=== PATIENT | male | born 1945 | race Caucasian/White ===

== ENCOUNTER 2021-07-13 08:01 | Inpatient (IN) ==
[2021-07-13] MEDS ORDERED: SODIUM CHLORIDE 0.9% 1,000 ML IV STA ×2 (08:42→10:42)
[2021-07-13] MEDS ORDERED: ONDANSETRON ODT 4 MG TABLET PO STA (08:42)
[2021-07-13] MEDS ORDERED: FUROSEMIDE 100 MG/10 ML VIAL IV STA (08:42)
[2021-07-13] MEDS ORDERED: HYDROmorphone 2 MG/1 ML VIAL IV STA (08:45)
[2021-07-13 09:09] LABS: ABG Base Excess -6.6 MMOL/L (-2.5-2.5); ABG HCO3 19.1 MMOL/L (20-26); ABG Oxygen Saturation 97.4 % (95-100); ABG PCO2 35.6 MM HG (35-48); ABG PH 7.328 (7.35-7.45); ABG PO2 97.2 MM HG (80-95); ABG TCO2 16.2 MMOL/L (23-27)
[2021-07-13 09:21] LABS: Basophils % 0.2 % (0.0-0.8); Hematocrit 45.5 VOL% (42.0-52.0); Hemoglobin 14.5 GM/DL (14.0-18.0); Immature Granulocytes Absolute 0.24 #; Lymphocytes # 0.6 10*3/uL (1.4-4.0); Lymphocytes % 2.3 % (21.2-54.2); Mean Corpuscular HGB Conc 31.9 GM/DL (32-36); Mean Corpuscular Volume 91.7 FL (87-102); Monocytes % 11.5 % (1.7-12.7); Platelet Count 317 T/CUMM (130-400); Red Blood Count 4.96 MC/CUMM (3.8-5.5); Red Cell Distribution Width 15.6 % (9.3-17.3)
[2021-07-13] MEDS ORDERED: PIPERACILLIN/TAZOBACTAM 3,375 MG in SODIUM CHLORIDE 0.9% 100 ML IV STA (09:38)
[2021-07-13 09:43] LABS: INR 1.5; PT Patient Result 16.1 SECS (10.5-12.0); Partial Thromboplastin Time 38.5 SECS (23.8-32.1)
[2021-07-13 09:47] LABS: Band Neutrophils 2 % (0-10); Lymphocytes 3 % (20-55); Microcytosis 1+; Ovalocytes Slight; Segmented Neutrophils 90 % (50-85); Total Cells Counted 100
[2021-07-13 09:48] LABS: Albumin 2.4 G/DL (3.4-5.0); Bilirubin,Total 1.3 MG/DL (0.20-1.00); Calcium 9.5 MG/DL (8.5-10.1); Osmolality,Calculated 293.1 MOS/KG (273-304); Potassium 4.5 MMOL/L (3.5-5.1); Total Protein 6.6 G/DL (6.4-8.2)
[2021-07-13 10:01] LABS: Amorphous Crystals,Urine Occasional /HPF (Few); Bacteria,Urine Occasional /HPF (Few); Bilirubin,Urine Negative (Negative); Blood, Urine Small mg/dL (Negative); Glucose,Urine (UA) Negative (Negative); Hyaline Casts,Urine 8 /LPF (0-3); Ketones,Urine Negative (Negative); Mucus,Urine Occasional /LPF (Occasional); Nitrite,Urine Negative (Negative); Protein,Urine Negative; RBC,Urine 8 /HPF (0-4); Squamous Epithelial Cell,Urine Occasional /HPF (0-10); Urine Appearance CLOUDY (Clear); Urine Color Amber (Yellow); Urine Specific Gravity 1.026 (1.001-1.035)
[2021-07-13] MEDS ORDERED: SODIUM CHLORIDE 0.9% 3,750 ML IV ONE (11:19)
[2021-07-13 11:50] LABS: Ferritin 537.7 ng/mL (26-388)
[2021-07-13] MEDS ORDERED: ALBUTEROL 2.5 MG/3 ML NEB RESP TX PRN (12:31)
[2021-07-13] MEDS ORDERED: MORPHINE 2 MG/1 ML SYRINGE IV PRN (12:32)
[2021-07-13] MEDS ORDERED: AZITHROMYCIN INJ 500 MG in SODIUM CHLORIDE 0.9% 250 ML IV ONE (12:32)
[2021-07-13] MEDS ORDERED: SIMETHICONE CHEW 125 MG TABLET PO PRN (12:32)
[2021-07-13] MEDS ORDERED: ACETAMINOPHEN 325 MG TABLET PO PRN (12:32)
[2021-07-13] MEDS ORDERED: BISACODYL 5 MG TABLET PO PRN (12:32)
[2021-07-13] MEDS ORDERED: cefTRIAXone 1,000 MG VIAL IM SCH (13:00)
[2021-07-13] MEDS: HEPARIN 5,000 UNIT/1 ML VIAL SUBCUT SCH (13:15)
[2021-07-13] MEDS: SODIUM CHLORIDE 0.9% 1,000 ML IV SCH (15:25)
[2021-07-13] MEDS: cefTRIAXone 2,000 MG in SODIUM CHLORIDE 0.9% 100 ML IV SCH (15:25)
[2021-07-13] MEDS: ALBUMIN 25% 25 GM/100 ML VIAL IV SCH ×2 (16:00→21:30)
[2021-07-13] MEDS: ASCORBIC ACID 500 MG TABLET PO SCH (21:28)
[2021-07-14] MEDS: SODIUM CHLORIDE 0.9% 1,000 ML IV SCH ×2 (00:25→08:41)
[2021-07-14 01:43] LABS: Basophils % 0.1 % (0.0-0.8); Hematocrit 29.4 VOL% (42.0-52.0); Immature Granulocytes % 0.7 %; Immature Granulocytes Absolute 0.11 #; Lymphocytes # 0.4 10*3/uL (1.4-4.0); Lymphocytes % 2.9 % (21.2-54.2); Mean Corpuscular HGB Conc 30.6 GM/DL (32-36); Mean Corpuscular Volume 96.4 FL (87-102); Mean Platelet Volume 10.1 FL (9.6-12.0); Monocytes % 11.8 % (1.7-12.7); Neutrophils % 84.5 % (38.7-73.9); Red Blood Count 3.05 MC/CUMM (3.8-5.5); White Blood Count 15.2 T/CUMM (4-12)
[2021-07-14 01:44] LABS: Platelet Count 176 T/CUMM (130-400)
[2021-07-14 01:50] LABS: INR 1.8; PT Patient Result 19.7 SECS (10.5-12.0)
[2021-07-14] MEDS: HEPARIN 5,000 UNIT/1 ML VIAL SUBCUT SCH ×2 (01:53→12:29)
[2021-07-14 02:19] LABS: Band Neutrophils 1 % (0-10); Lymphocytes 1 % (20-55); Segmented Neutrophils 93 % (50-85); Total Cells Counted 100
[2021-07-14 02:20] LABS: Anisocytosis 1+; Burr Cells Slight; Microcytosis 1+; Ovalocytes Slight
[2021-07-14 02:21] LABS: Platelet Estimate Adequate
[2021-07-14 02:57] LABS: Alanine Aminotransferase 12 U/L (16-61); Albumin 1.3 G/DL (3.4-5.0); Alkaline Phosphatase 54 U/L (45-117); Aspartate Amino Transferase 10 U/L (0-37); Blood Urea Nitrogen 64 MG/DL (7-18); Carbon Dioxide 13 MMOL/L (21-32); Estimated Glom Filtration Rate 22 ML/MIN; Ferritin 308.3 ng/mL (26-388); Glucose 68 MG/DL (74-106); Osmolality,Calculated 305.6 MOS/KG (273-304); Potassium 2.9 MMOL/L (3.5-5.1); Sodium 146 MMOL/L (136-145); Total Protein 3.4 G/DL (6.4-8.2)
[2021-07-14 03:07] LABS: Calcium < 5.0 MG/DL (8.5-10.1)
[2021-07-14 04:50] LABS: Basophils % 0.2 % (0.0-0.8); Hematocrit 35.7 VOL% (42.0-52.0); Immature Granulocytes % 0.8 %; Immature Granulocytes Absolute 0.14 #; Lymphocytes # 0.5 10*3/uL (1.4-4.0); Lymphocytes % 2.9 % (21.2-54.2); Mean Corpuscular HGB Conc 31.1 GM/DL (32-36); Mean Corpuscular Volume 95.2 FL (87-102); Monocytes % 12.2 % (1.7-12.7); Neutrophils % 83.9 % (38.7-73.9); Red Cell Distribution Width 16.1 % (9.3-17.3); White Blood Count 17.7 T/CUMM (4-12)
[2021-07-14 05:17] LABS: Hemoglobin 11.1 GM/DL (14.0-18.0); Red Blood Count 3.75 MC/CUMM (3.8-5.5)
[2021-07-14 05:18] LABS: Platelet Count 219 T/CUMM (130-400)
[2021-07-14 05:21] LABS: Bilirubin,Total 0.6 MG/DL (0.20-1.00); Calcium 6.9 MG/DL (8.5-10.1); Potassium 3.9 MMOL/L (3.5-5.1); Total Protein 4.7 G/DL (6.4-8.2)
[2021-07-14 05:41] LABS: Lymphocytes 2 % (20-55); Microcytosis 1+; Ovalocytes Few; Polychromasia Slight; Segmented Neutrophils 91 % (50-85); Total Cells Counted 100
[2021-07-14 05:42] LABS: Burr Cells Few; Platelet Estimate Normal
[2021-07-14] MEDS: ALBUMIN 25% 25 GM/100 ML VIAL IV SCH (05:48)
[2021-07-14] MEDS: CHOLECALCIFEROL 1,000 UNIT TABLET PO SCH (08:36)
[2021-07-14] MEDS: ASCORBIC ACID 500 MG TABLET PO SCH ×2 (08:36→20:31)
[2021-07-14] MEDS: FAMOTIDINE 20 MG TABLET PO SCH (08:36)
[2021-07-14] MEDS: AZITHROMYCIN 250 MG TABLET PO SCH (08:36)
[2021-07-14] MEDS: ZINC GLUCONATE 50 MG TABLET PO SCH (08:36)
[2021-07-14] MEDS: TAMSULOSIN 0.4 MG CAPSULE PO SCH (08:37)
[2021-07-14] MEDS: DEXAMETHASONE 4 MG/1 ML VIAL IV SCH (09:04)
[2021-07-14] MEDS: SODIUM BICARB INJ 150 MEQ in DEXTROSE 5% 1,000 ML IV SCH (09:40)
[2021-07-14] MEDS: ALBUMIN 25% 12.5 GM/50 ML VIAL IV SCH ×2 (12:29→20:31)
[2021-07-14] MEDS: SPIRONOLACTONE 50 MG TABLET PO SCH ×2 (12:54→20:31)
[2021-07-14 13:08] LABS: Calcium 8.1 MG/DL (8.5-10.1); Osmolality,Calculated 309.7 MOS/KG (273-304); Potassium 4.8 MMOL/L (3.5-5.1)
[2021-07-14] MEDS: cefTRIAXone 2,000 MG in SODIUM CHLORIDE 0.9% 100 ML IV SCH (14:00)
[2021-07-14 15:52] LABS: INR 1.5; PT Patient Result 15.9 SECS (10.5-12.0)
[2021-07-14 15:54] LABS: Partial Thromboplastin Time 43.6 SECS (23.8-32.1)
[2021-07-14 16:43] LABS: Hepatitis B Core IgM Quant 0.08 Index; Hepatitis B Surface Ag Quant < 0.10 Index; Hepatitis B Surface Ag Result Non-Reactive (NonReactive); Hepatitis C Virus Ab Quant 0.09 Index; Hepatitis C Virus Ab Result Non-Reactive (NonReactive)
[2021-07-15] MEDS: HEPARIN 5,000 UNIT/1 ML VIAL SUBCUT SCH ×2 (00:28→13:02)
[2021-07-15] MEDS: ALBUMIN 25% 12.5 GM/50 ML VIAL IV SCH (04:42)
[2021-07-15 04:59] LABS: Basophils % 0.1 % (0.0-0.8); Hemoglobin 12.3 GM/DL (14.0-18.0); Immature Granulocytes % 1.3 %; Immature Granulocytes Absolute 0.24 #; Lymphocytes # 0.5 10*3/uL (1.4-4.0); Lymphocytes % 2.5 % (21.2-54.2); Mean Corpuscular HGB Conc 31.5 GM/DL (32-36); Mean Corpuscular Volume 92.4 FL (87-102); Mean Platelet Volume 9.8 FL (9.6-12.0); Monocytes % 11.7 % (1.7-12.7); Neutrophils % 84.4 % (38.7-73.9); Platelet Count 204 T/CUMM (130-400); Red Blood Count 4.22 MC/CUMM (3.8-5.5); Red Cell Distribution Width 15.9 % (9.3-17.3); White Blood Count 17.9 T/CUMM (4-12)
[2021-07-15 05:18] LABS: Band Neutrophils 1 % (0-10); Hypochromasia 1+; Lymphocytes 3 % (20-55); Segmented Neutrophils 85 % (50-85); Total Cells Counted 100
[2021-07-15 05:19] LABS: Microcytosis 1+; Ovalocytes Few; Platelet Estimate Normal
[2021-07-15 05:34] LABS: Albumin 2.9 G/DL (3.4-5.0); Bilirubin,Total 0.7 MG/DL (0.20-1.00); Osmolality,Calculated 312.1 MOS/KG (273-304); Potassium 4.6 MMOL/L (3.5-5.1); Total Protein 6.2 G/DL (6.4-8.2)
[2021-07-15] MEDS: SODIUM BICARB INJ 150 MEQ in DEXTROSE 5% 1,000 ML IV SCH (06:05)
[2021-07-15] MEDS: FAMOTIDINE 20 MG TABLET PO SCH ×2 (08:25→10:18)
[2021-07-15] MEDS: ASCORBIC ACID 500 MG TABLET PO SCH ×2 (08:25→21:45)
[2021-07-15] MEDS: ZINC GLUCONATE 50 MG TABLET PO SCH (08:25)
[2021-07-15] MEDS: CHOLECALCIFEROL 1,000 UNIT TABLET PO SCH (08:25)
[2021-07-15] MEDS: DEXAMETHASONE 4 MG/1 ML VIAL IV SCH (08:33)
[2021-07-15] MEDS: TAMSULOSIN 0.4 MG CAPSULE PO SCH ×2 (08:41→10:17)
[2021-07-15] MEDS: SPIRONOLACTONE 50 MG TABLET PO SCH ×3 (08:41→21:45)
[2021-07-15 09:04] LABS: INR 1.5; PT Patient Result 16.3 SECS (10.5-12.0)
[2021-07-15 09:27] LABS: Partial Thromboplastin Time 42.6 SECS (23.8-32.1)
[2021-07-15] MEDS: AZITHROMYCIN 250 MG TABLET PO SCH (10:17)
[2021-07-15] MEDS: LACTULOSE 20 GM/30 ML UDCUP PO SCH ×2 (12:17→21:45)
[2021-07-15] MEDS ORDERED: ALBUMIN 25% 25 GM/100 ML VIAL IV ONE (14:19)
[2021-07-15] MEDS ORDERED: NOREPINEPHRINE 8 MG in SODIUM CHLORIDE 0.9% 242 ML IV PRN (15:05)
[2021-07-15] MEDS ORDERED: HEPARIN 10,000 UNIT/10 ML VIAL IV SCH (15:30)
[2021-07-15] MEDS: cefTRIAXone 2,000 MG in SODIUM CHLORIDE 0.9% 100 ML IV SCH (16:00)
[2021-07-16] MEDS: HEPARIN 5,000 UNIT/1 ML VIAL SUBCUT SCH ×2 (01:17→14:30)
[2021-07-16] MEDS: SODIUM BICARB INJ 150 MEQ in DEXTROSE 5% 1,000 ML IV SCH (04:21)
[2021-07-16 04:55] LABS: Basophils % 0.1 % (0.0-0.8); Hematocrit 35.5 VOL% (42.0-52.0); Hemoglobin 11.5 GM/DL (14.0-18.0); Immature Granulocytes % 1.5 %; Immature Granulocytes Absolute 0.16 #; Lymphocytes # 0.3 10*3/uL (1.4-4.0); Lymphocytes % 3.2 % (21.2-54.2); Mean Corpuscular HGB Conc 32.4 GM/DL (32-36); Mean Corpuscular Volume 89.9 FL (87-102); Mean Platelet Volume 9.9 FL (9.6-12.0); Neutrophils % 83.2 % (38.7-73.9); Platelet Count 131 T/CUMM (130-400); Red Blood Count 3.95 MC/CUMM (3.8-5.5); Red Cell Distribution Width 15.7 % (9.3-17.3); White Blood Count 10.8 T/CUMM (4-12)
[2021-07-16 05:07] LABS: INR 1.4; PT Patient Result 15.6 SECS (10.5-12.0)
[2021-07-16 05:15] LABS: Albumin 2.9 G/DL (3.4-5.0); Bilirubin,Total 0.8 MG/DL (0.20-1.00); Calcium 7.9 MG/DL (8.5-10.1); Osmolality,Calculated 316.2 MOS/KG (273-304); Potassium 4.3 MMOL/L (3.5-5.1); Total Protein 5.9 G/DL (6.4-8.2)
[2021-07-16 05:20] LABS: Lymphocytes 4 % (20-55); Myelocytes 1 %; Platelet Estimate Normal; Segmented Neutrophils 90 % (50-85); Total Cells Counted 100
[2021-07-16] MEDS: TAMSULOSIN 0.4 MG CAPSULE PO SCH (09:50)
[2021-07-16] MEDS: FAMOTIDINE 20 MG TABLET PO SCH (09:50)
[2021-07-16] MEDS: CHOLECALCIFEROL 1,000 UNIT TABLET PO SCH (09:50)
[2021-07-16] MEDS: ASCORBIC ACID 500 MG TABLET PO SCH ×2 (09:50→20:33)
[2021-07-16] MEDS: DEXAMETHASONE 4 MG/1 ML VIAL IV SCH (09:50)
[2021-07-16] MEDS: LACTULOSE 20 GM/30 ML UDCUP PO SCH ×2 (09:50→20:40)
[2021-07-16] MEDS: AZITHROMYCIN 250 MG TABLET PO SCH (09:50)
[2021-07-16] MEDS: SPIRONOLACTONE 50 MG TABLET PO SCH ×2 (09:50→20:33)
[2021-07-16] MEDS: ZINC GLUCONATE 50 MG TABLET PO SCH (09:50)
[2021-07-16] MEDS: cefTRIAXone 2,000 MG in SODIUM CHLORIDE 0.9% 100 ML IV SCH (16:09)
[2021-07-17] MEDS: HEPARIN 5,000 UNIT/1 ML VIAL SUBCUT SCH ×2 (02:41→13:01)
[2021-07-17 05:39] LABS: Basophils % 0.3 % (0.0-0.8); Hematocrit 35.5 VOL% (42.0-52.0); Hemoglobin 11.7 GM/DL (14.0-18.0); Immature Granulocytes % 2.4 %; Immature Granulocytes Absolute 0.19 #; Lymphocytes # 0.2 10*3/uL (1.4-4.0); Mean Corpuscular Volume 89.9 FL (87-102); Monocytes % 12.1 % (1.7-12.7); Neutrophils % 82.2 % (38.7-73.9); Platelet Count 102 T/CUMM (130-400); Red Blood Count 3.95 MC/CUMM (3.8-5.5); Red Cell Distribution Width 15.6 % (9.3-17.3); White Blood Count 7.8 T/CUMM (4-12)
[2021-07-17 06:05] LABS: Albumin 2.8 G/DL (3.4-5.0); Bilirubin,Total 0.6 MG/DL (0.20-1.00); Calcium 8.3 MG/DL (8.5-10.1); Osmolality,Calculated 306.8 MOS/KG (273-304); Potassium 4.7 MMOL/L (3.5-5.1); Total Protein 5.9 G/DL (6.4-8.2)
[2021-07-17 06:28] LABS: Hypochromasia Slight; Lymphocytes 3 % (20-55); Segmented Neutrophils 82 % (50-85); Total Cells Counted 100
[2021-07-17 06:29] LABS: Microcytosis 1+; Ovalocytes Few; Platelet Estimate Decreased; Target Cells Slight
[2021-07-17] MEDS: SPIRONOLACTONE 50 MG TABLET PO SCH ×2 (08:37→21:00)
[2021-07-17] MEDS: ZINC GLUCONATE 50 MG TABLET PO SCH (08:37)
[2021-07-17] MEDS: CHOLECALCIFEROL 1,000 UNIT TABLET PO SCH (08:37)
[2021-07-17] MEDS: ASCORBIC ACID 500 MG TABLET PO SCH ×2 (08:37→21:00)
[2021-07-17] MEDS: AZITHROMYCIN 250 MG TABLET PO SCH (08:37)
[2021-07-17] MEDS: TAMSULOSIN 0.4 MG CAPSULE PO SCH (08:37)
[2021-07-17] MEDS: FAMOTIDINE 20 MG TABLET PO SCH (08:37)
[2021-07-17] MEDS: DEXAMETHASONE 4 MG/1 ML VIAL IV SCH (08:38)
[2021-07-17] MEDS: LACTULOSE 20 GM/30 ML UDCUP PO SCH ×2 (08:38→21:00)
[2021-07-17] MEDS: cefTRIAXone 2,000 MG in SODIUM CHLORIDE 0.9% 100 ML IV SCH (13:02)
[2021-07-17] MEDS: ZINC OXIDE PASTE 113 GM TUBE TOP SCH ×2 (14:31→20:59)
[2021-07-18 08:31] LABS: Basophils % 0.2 % (0.0-0.8); Hematocrit 37.8 VOL% (42.0-52.0); Hemoglobin 12.4 GM/DL (14.0-18.0); Immature Granulocytes % 4.4 %; Immature Granulocytes Absolute 0.44 #; Lymphocytes # 0.2 10*3/uL (1.4-4.0); Lymphocytes % 2.1 % (21.2-54.2); Mean Corpuscular HGB Conc 32.8 GM/DL (32-36); Mean Corpuscular Volume 88.7 FL (87-102); Mean Platelet Volume 9.2 FL (9.6-12.0); Monocytes % 13.4 % (1.7-12.7); Neutrophils % 79.9 % (38.7-73.9); Red Blood Count 4.26 MC/CUMM (3.8-5.5); Red Cell Distribution Width 15.5 % (9.3-17.3); White Blood Count 10.1 T/CUMM (4-12)
[2021-07-18] MEDS: SPIRONOLACTONE 50 MG TABLET PO SCH ×2 (08:49→23:18)
[2021-07-18] MEDS: ZINC GLUCONATE 50 MG TABLET PO SCH (08:49)
[2021-07-18] MEDS: CHOLECALCIFEROL 1,000 UNIT TABLET PO SCH (08:49)
[2021-07-18] MEDS: FAMOTIDINE 20 MG TABLET PO SCH (08:49)
[2021-07-18] MEDS: ASCORBIC ACID 500 MG TABLET PO SCH ×2 (08:49→23:18)
[2021-07-18] MEDS: LACTULOSE 20 GM/30 ML UDCUP PO SCH ×2 (08:50→23:18)
[2021-07-18] MEDS: TAMSULOSIN 0.4 MG CAPSULE PO SCH (08:50)
[2021-07-18] MEDS: DEXAMETHASONE 4 MG/1 ML VIAL IV SCH (08:50)
[2021-07-18 08:53] LABS: Platelet Count 94 T/CUMM (130-400)
[2021-07-18 08:55] LABS: Albumin 2.8 G/DL (3.4-5.0); Bilirubin,Total 0.8 MG/DL (0.20-1.00); Calcium 8.6 MG/DL (8.5-10.1); Osmolality,Calculated 305.8 MOS/KG (273-304); Potassium 4.6 MMOL/L (3.5-5.1); Total Protein 6.1 G/DL (6.4-8.2)
[2021-07-18] MEDS: ZINC OXIDE PASTE 113 GM TUBE TOP SCH ×2 (09:00→23:18)
[2021-07-18 09:03] LABS: Lymphocytes 8 % (20-55); Platelet Estimate Decreased; Segmented Neutrophils 79 % (50-85); Total Cells Counted 100
[2021-07-19 06:15] LABS: Basophils # 0.1 10*3/uL (0.0-0.2); Basophils % 0.3 % (0.0-0.8); Hematocrit 41.9 VOL% (42.0-52.0); Hemoglobin 13.7 GM/DL (14.0-18.0); Immature Granulocytes % 5.2 %; Immature Granulocytes Absolute 0.79 #; Lymphocytes # 0.3 10*3/uL (1.4-4.0); Lymphocytes % 2.3 % (21.2-54.2); Mean Corpuscular HGB Conc 32.7 GM/DL (32-36); Mean Corpuscular Volume 89.1 FL (87-102); Mean Platelet Volume 10.4 FL (9.6-12.0); Monocytes % 12.2 % (1.7-12.7); NRBC # 0.02 10*3/uL; Platelet Count 108 T/CUMM (130-400); Red Cell Distribution Width 15.6 % (9.3-17.3); White Blood Count 15.1 T/CUMM (4-12)
[2021-07-19 06:37] LABS: Lymphocytes 2 % (20-55); Platelet Estimate Adequate; Segmented Neutrophils 86 % (50-85); Total Cells Counted 100
[2021-07-19] MEDS: DEXAMETHASONE 4 MG/1 ML VIAL IV SCH (09:08)
[2021-07-19] MEDS: ASCORBIC ACID 500 MG TABLET PO SCH ×2 (09:09→20:39)
[2021-07-19] MEDS: CHOLECALCIFEROL 1,000 UNIT TABLET PO SCH (09:10)
[2021-07-19] MEDS: ZINC GLUCONATE 50 MG TABLET PO SCH (09:10)
[2021-07-19] MEDS: SPIRONOLACTONE 50 MG TABLET PO SCH ×2 (09:10→20:40)
[2021-07-19] MEDS: FAMOTIDINE 20 MG TABLET PO SCH (09:10)
[2021-07-19] MEDS: LACTULOSE 20 GM/30 ML UDCUP PO SCH ×2 (09:10→20:40)
[2021-07-19] MEDS: TAMSULOSIN 0.4 MG CAPSULE PO SCH (09:10)
[2021-07-19] MEDS: ZINC OXIDE PASTE 113 GM TUBE TOP SCH ×2 (14:20→20:39)
[2021-07-20 06:19] LABS: Basophils # 0.1 10*3/uL (0.0-0.2); Basophils % 0.4 % (0.0-0.8); Hematocrit 41.3 VOL% (42.0-52.0); Hemoglobin 13.6 GM/DL (14.0-18.0); Immature Granulocytes % 4.8 %; Immature Granulocytes Absolute 0.68 #; Lymphocytes # 0.3 10*3/uL (1.4-4.0); Mean Corpuscular HGB Conc 32.9 GM/DL (32-36); Mean Corpuscular Volume 89.4 FL (87-102); Mean Platelet Volume 10.5 FL (9.6-12.0); Monocytes % 11.2 % (1.7-12.7); Neutrophils % 81.6 % (38.7-73.9); Platelet Count 65 T/CUMM (130-400); Red Blood Count 4.62 MC/CUMM (3.8-5.5); Red Cell Distribution Width 15.5 % (9.3-17.3); White Blood Count 14.3 T/CUMM (4-12)
[2021-07-20 06:32] LABS: Calcium 8.8 MG/DL (8.5-10.1)
[2021-07-20 06:53] LABS: Lymphocytes 7 % (20-55); Segmented Neutrophils 83 % (50-85); Total Cells Counted 100
[2021-07-20 06:54] LABS: Ovalocytes Few; Platelet Estimate Decreased; Schistocytes Slight
[2021-07-20] MEDS: SPIRONOLACTONE 50 MG TABLET PO SCH ×2 (08:03→20:11)
[2021-07-20] MEDS: ASCORBIC ACID 500 MG TABLET PO SCH ×2 (08:03→20:11)
[2021-07-20] MEDS: LACTULOSE 20 GM/30 ML UDCUP PO SCH ×2 (08:03→20:11)
[2021-07-20] MEDS: FAMOTIDINE 20 MG TABLET PO SCH (08:03)
[2021-07-20] MEDS: TAMSULOSIN 0.4 MG CAPSULE PO SCH (08:03)
[2021-07-20] MEDS: DEXAMETHASONE 4 MG/1 ML VIAL IV SCH (08:03)
[2021-07-20] MEDS: ZINC OXIDE PASTE 113 GM TUBE TOP SCH ×2 (08:03→20:11)
[2021-07-20] MEDS: CHOLECALCIFEROL 1,000 UNIT TABLET PO SCH (08:03)
[2021-07-20] MEDS: ZINC GLUCONATE 50 MG TABLET PO SCH (08:03)
[2021-07-21 06:35] LABS: Basophils # 0.1 10*3/uL (0.0-0.2); Basophils % 0.4 % (0.0-0.8); Hematocrit 42.9 VOL% (42.0-52.0); Hemoglobin 13.9 GM/DL (14.0-18.0); Immature Granulocytes Absolute 0.99 #; Lymphocytes # 0.3 10*3/uL (1.4-4.0); Lymphocytes % 1.7 % (21.2-54.2); Mean Corpuscular HGB Conc 32.4 GM/DL (32-36); Mean Corpuscular Volume 90.1 FL (87-102); Mean Platelet Volume 9.7 FL (9.6-12.0); Monocytes % 9.6 % (1.7-12.7); Neutrophils % 83.3 % (38.7-73.9); Platelet Count 91 T/CUMM (130-400); Red Blood Count 4.76 MC/CUMM (3.8-5.5); Red Cell Distribution Width 15.6 % (9.3-17.3); White Blood Count 19.9 T/CUMM (4-12)
[2021-07-21 07:17] LABS: Albumin 2.7 G/DL (3.4-5.0); Bilirubin,Total 0.8 MG/DL (0.20-1.00); Calcium 8.7 MG/DL (8.5-10.1); Osmolality,Calculated 309.1 MOS/KG (273-304); Potassium 5.4 MMOL/L (3.5-5.1); Total Protein 6.3 G/DL (6.4-8.2)
[2021-07-21] MEDS: LACTULOSE 20 GM/30 ML UDCUP PO SCH ×2 (09:11→22:44)
[2021-07-21] MEDS: ASCORBIC ACID 500 MG TABLET PO SCH ×2 (09:11→22:44)
[2021-07-21] MEDS: DEXAMETHASONE 4 MG/1 ML VIAL IV SCH (09:11)
[2021-07-21] MEDS: ZINC GLUCONATE 50 MG TABLET PO SCH (09:11)
[2021-07-21] MEDS: CHOLECALCIFEROL 1,000 UNIT TABLET PO SCH (09:11)
[2021-07-21] MEDS: TAMSULOSIN 0.4 MG CAPSULE PO SCH (09:11)
[2021-07-21] MEDS: SPIRONOLACTONE 50 MG TABLET PO SCH ×2 (09:11→22:44)
[2021-07-21] MEDS: FAMOTIDINE 20 MG TABLET PO SCH (09:11)
[2021-07-21 09:35] LABS: Band Neutrophils 1 % (0-10); Hypochromasia 1+; Lymphocytes 3 % (20-55); Metamyelocytes 4 %; Myelocytes 1 %; Platelet Estimate Adequate; Segmented Neutrophils 84 % (50-85); Total Cells Counted 100
[2021-07-21] MEDS: ZINC OXIDE PASTE 113 GM TUBE TOP SCH ×2 (13:49→22:44)
[2021-07-22 06:50] LABS: Basophils # 0.1 10*3/uL (0.0-0.2); Basophils % 0.2 % (0.0-0.8); Hematocrit 42.9 VOL% (42.0-52.0); Hemoglobin 13.9 GM/DL (14.0-18.0); Immature Granulocytes % 4.5 %; Immature Granulocytes Absolute 0.95 #; Lymphocytes # 0.3 10*3/uL (1.4-4.0); Lymphocytes % 1.4 % (21.2-54.2); Mean Corpuscular HGB Conc 32.4 GM/DL (32-36); Mean Corpuscular Volume 89.2 FL (87-102); Mean Platelet Volume 10.1 FL (9.6-12.0); Monocytes % 8.1 % (1.7-12.7); Neutrophils % 85.8 % (38.7-73.9); Platelet Count 89 T/CUMM (130-400); Red Blood Count 4.81 MC/CUMM (3.8-5.5); Red Cell Distribution Width 15.5 % (9.3-17.3)
[2021-07-22 07:11] LABS: Lymphocytes 1 % (20-55); Platelet Estimate Decreased; Segmented Neutrophils 94 % (50-85); Total Cells Counted 100
[2021-07-22 07:33] LABS: Albumin 2.7 G/DL (3.4-5.0); Bilirubin,Total 0.8 MG/DL (0.20-1.00); Calcium 8.7 MG/DL (8.5-10.1); Osmolality,Calculated 317.8 MOS/KG (273-304); Total Protein 6.2 G/DL (6.4-8.2)
[2021-07-22 07:55] LABS: Potassium 6.2 MMOL/L (3.5-5.1)
[2021-07-22] MEDS: ZINC OXIDE PASTE 113 GM TUBE TOP SCH ×2 (09:32→22:17)
[2021-07-22] MEDS ORDERED: BUPIVACAINE 0.5% 50 ML VIAL ONE (10:04)
[2021-07-22] MEDS ORDERED: HEPARIN 5,000 UNIT/1 ML VIAL ONE (10:04)
[2021-07-22] MEDS ORDERED: LIDOCAINE 1%/EPI INJ 20 ML VIAL ONE (10:05)
[2021-07-22] MEDS ORDERED: LIDOCAINE 2% 5 ML VIAL ONE (10:10)
[2021-07-22] MEDS ORDERED: propofoL 200 MG/20 ML VIAL IV ONE (10:10)
[2021-07-22] MEDS ORDERED: MIDAZOLAM 2 MG/2 ML VIAL ONE (10:10)
[2021-07-22] MEDS ORDERED: KETAMINE 500 MG/10 ML VIAL ONE (10:11)
[2021-07-22 10:53] LABS: ABG Base Excess -5.1 MMOL/L (-2.5-2.5); ABG HCO3 19.8 MMOL/L (20-26); ABG Oxygen Saturation 97.7 % (95-100); ABG PCO2 36.8 MM HG (35-48); ABG PH 7.349 (7.35-7.45); ABG TCO2 20.9 MMOL/L (23-27)
[2021-07-22] MEDS ORDERED: HYDROmorphone 2 MG/1 ML VIAL IV ONE (15:01)
[2021-07-22] MEDS: ASCORBIC ACID 500 MG TABLET PO SCH ×2 (15:09→22:17)
[2021-07-22] MEDS: TAMSULOSIN 0.4 MG CAPSULE PO SCH (15:09)
[2021-07-22] MEDS: ZINC GLUCONATE 50 MG TABLET PO SCH (15:09)
[2021-07-22] MEDS: CHOLECALCIFEROL 1,000 UNIT TABLET PO SCH (15:09)
[2021-07-22] MEDS: LACTULOSE 20 GM/30 ML UDCUP PO SCH ×2 (15:09→22:16)
[2021-07-22] MEDS: FAMOTIDINE 20 MG TABLET PO SCH (15:10)
[2021-07-22] MEDS: DEXAMETHASONE 4 MG/1 ML VIAL IV SCH (15:10)
[2021-07-23 06:57] LABS: Basophils # 0.2 10*3/uL (0.0-0.2); Basophils % 0.5 % (0.0-0.8); Hematocrit 44.3 VOL% (42.0-52.0); Immature Granulocytes % 3.6 %; Immature Granulocytes Absolute 1.14 #; Lymphocytes # 0.3 10*3/uL (1.4-4.0); Lymphocytes % 0.9 % (21.2-54.2); Mean Corpuscular HGB Conc 33.9 GM/DL (32-36); Mean Corpuscular Volume 88.6 FL (87-102); Mean Platelet Volume 11.7 FL (9.6-12.0); Monocytes % 7.9 % (1.7-12.7); Neutrophils % 87.1 % (38.7-73.9); Platelet Count 60 T/CUMM (130-400); Red Cell Distribution Width 15.6 % (9.3-17.3); White Blood Count 31.5 T/CUMM (4-12)
[2021-07-23 07:09] LABS: Albumin 2.7 G/DL (3.4-5.0); Bilirubin,Total 1.1 MG/DL (0.20-1.00); Calcium 8.7 MG/DL (8.5-10.1); Osmolality,Calculated 305.1 MOS/KG (273-304); Total Protein 6.6 G/DL (6.4-8.2)
[2021-07-23 07:11] LABS: Lymphocytes 3 % (20-55); Platelet Estimate Decreased; Segmented Neutrophils 90 % (50-85); Total Cells Counted 100
[2021-07-23 07:15] LABS: Potassium 6.1 MMOL/L (3.5-5.1)
[2021-07-23] MEDS ORDERED: INSULIN REGULAR 10 UNIT, CALCIUM GLUCONATE 1,000 MG in DEXTROSE 10% 250 ML IV ONE (08:30)
[2021-07-23 08:40] LABS: INR 1.5
[2021-07-23] MEDS ORDERED: VANCOMYCIN INJ 1,000 MG in SODIUM CHLORIDE 0.9% 250 ML IV PRN (08:48)
[2021-07-23] MEDS: DEXAMETHASONE 4 MG/1 ML VIAL IV SCH (09:09)
[2021-07-23 12:38] LABS: Neutrophils,Peritoneal Fluid 77 %; RBC,Peritoneal Fluid 7665 T/CUMM
[2021-07-23] MEDS: TAMSULOSIN 0.4 MG CAPSULE PO SCH (12:39)
[2021-07-23] MEDS: ZINC GLUCONATE 50 MG TABLET PO SCH (12:39)
[2021-07-23] MEDS: LACTULOSE 20 GM/30 ML UDCUP PO SCH ×2 (12:39→22:14)
[2021-07-23] MEDS: ASCORBIC ACID 500 MG TABLET PO SCH ×2 (12:40→22:14)
[2021-07-23] MEDS: ZINC OXIDE PASTE 113 GM TUBE TOP SCH ×2 (12:40→22:14)
[2021-07-23] MEDS: CHOLECALCIFEROL 1,000 UNIT TABLET PO SCH (12:40)
[2021-07-23] MEDS: FAMOTIDINE 20 MG TABLET PO SCH (12:40)
[2021-07-23] MEDS ORDERED: MAGNESIUM SULF RIDER 2 GM/50 ML PREMIX IV ONE (13:00)
[2021-07-23] MEDS: cefTAZidime 500 MG in SODIUM CHLORIDE 0.9% 100 ML IV SCH (16:23)
[2021-07-23] MEDS ORDERED: VANCOMYCIN INJ 2,500 MG in SODIUM CHLORIDE 0.9% 500 ML IV ONE (17:00)
[2021-07-23] MEDS: MORPHINE 2 MG/1 ML SYRINGE IV PRN (17:54)
[2021-07-23] MEDS: ONDANSETRON 4 MG/2 ML VIAL IV PRN (17:55)
[2021-07-23] MEDS: SODIUM BICARBONATE 650 MG TABLET PO SCH (22:14)
[2021-07-24 05:13] LABS: Basophils # 0.1 10*3/uL (0.0-0.2); Basophils % 0.3 % (0.0-0.8); Hematocrit 46.4 VOL% (42.0-52.0); Hemoglobin 15.4 GM/DL (14.0-18.0); Immature Granulocytes % 2.4 %; Immature Granulocytes Absolute 0.97 #; Lymphocytes # 0.3 10*3/uL (1.4-4.0); Lymphocytes % 0.6 % (21.2-54.2); Mean Corpuscular HGB Conc 33.2 GM/DL (32-36); Mean Corpuscular Volume 90.8 FL (87-102); Mean Platelet Volume 10.9 FL (9.6-12.0); Monocytes % 7.7 % (1.7-12.7); Platelet Count 99 T/CUMM (130-400); Red Blood Count 5.11 MC/CUMM (3.8-5.5); Red Cell Distribution Width 15.7 % (9.3-17.3)
[2021-07-24 05:25] LABS: White Blood Count 41.2 T/CUMM (4-12)
[2021-07-24 05:40] LABS: Lymphocytes 1 % (20-55); Platelet Estimate Decreased; Segmented Neutrophils 93 % (50-85); Total Cells Counted 100
[2021-07-24 05:49] LABS: Albumin 2.5 G/DL (3.4-5.0); Bilirubin,Total 1.4 MG/DL (0.20-1.00); Calcium 8.8 MG/DL (8.5-10.1); Osmolality,Calculated 312.8 MOS/KG (273-304); Total Protein 5.6 G/DL (6.4-8.2)
[2021-07-24 05:51] LABS: Potassium 6.1 MMOL/L (3.5-5.1)
[2021-07-24] MEDS: MORPHINE 2 MG/1 ML SYRINGE IV PRN ×3 (06:32→21:07)
[2021-07-24] MEDS: LACTULOSE 20 GM/30 ML UDCUP PO SCH ×2 (08:12→21:35)
[2021-07-24] MEDS: SODIUM BICARBONATE 650 MG TABLET PO SCH (08:12)
[2021-07-24] MEDS: CHOLECALCIFEROL 1,000 UNIT TABLET PO SCH (08:12)
[2021-07-24] MEDS: FAMOTIDINE 20 MG TABLET PO SCH (08:12)
[2021-07-24] MEDS: ZINC GLUCONATE 50 MG TABLET PO SCH (08:12)
[2021-07-24] MEDS: ASCORBIC ACID 500 MG TABLET PO SCH ×2 (08:12→21:36)
[2021-07-24] MEDS: TAMSULOSIN 0.4 MG CAPSULE PO SCH (08:12)
[2021-07-24] MEDS: ZINC OXIDE PASTE 113 GM TUBE TOP SCH ×2 (08:20→23:30)
[2021-07-24 08:44] VITALS: BP 105/51
[2021-07-24] MEDS ORDERED: INSULIN REGULAR 10 UNIT, CALCIUM GLUCONATE 1,000 MG in DEXTROSE 10% 250 ML IV ONE (09:00)
[2021-07-24] MEDS ORDERED: ALBUMIN 25% 12.5 GM/50 ML VIAL IV ONE ×2 (10:53→12:00)
[2021-07-24] MEDS ORDERED: NOREPINEPHRINE 4 MG/4 ML VIAL IV ONE (13:26)
[2021-07-24] MEDS: NOREPINEPHRINE 8 MG in SODIUM CHLORIDE 0.9% 242 ML IV PRN ×3 (13:35→23:42)
[2021-07-24] MEDS ORDERED: ENOXAPARIN 100 MG/ML SYRINGE SUBCUT SCH (15:00)
[2021-07-24] MEDS: cefTAZidime 500 MG in SODIUM CHLORIDE 0.9% 100 ML IV SCH (16:30)
[2021-07-24] MEDS ORDERED: VANCOMYCIN INJ 1,000 MG in SODIUM CHLORIDE 0.9% 250 ML IV ONE (17:00)
[2021-07-24] MEDS: SODIUM ZIRCONIUM CYCLOSILICATE 10 GM PACK PO SCH ×2 (17:21→21:36)
[2021-07-24] MEDS ORDERED: DIGOXIN 0.5 MG/2 ML AMP IV ONE ×2 (18:52→19:30)
[2021-07-24] MEDS: ONDANSETRON 4 MG/2 ML VIAL IV PRN (21:07)
[2021-07-24] MEDS ORDERED: HYDROmorphone 2 MG/1 ML VIAL IV PRN (22:39)
[2021-07-25] MEDS ORDERED: GLUCAGON 1 MG VIAL IM PRN (02:26)
[2021-07-25] MEDS ORDERED: DEXTROSE 50% 25 GM/50 ML VIAL IV PRN (02:26)
[2021-07-25] MEDS ORDERED: DEXTROSE 50% 25 GM/50 ML VIAL IV ONE (02:28)
[2021-07-25] MEDS ORDERED: DILTIAZEM INJ 100 MG in SODIUM CHLORIDE 0.9% 100 ML IV SCH (02:30)
[2021-07-25] MEDS: NOREPINEPHRINE 16 MG in SODIUM CHLORIDE 0.9% 234 ML IV PRN ×2 (02:45→05:09)
[2021-07-25] MEDS ORDERED: EPINEPHrine 1 MG/10 ML SYRINGE ONE (04:14)
[2021-07-25] MEDS ORDERED: CALCIUM CHLORIDE 1,000 MG/10 ML SYRINGE IV ONE (04:14)
[2021-07-25] MEDS ORDERED: DEXTROSE 50% 25 GM/50 ML SYRINGE IV ONE (04:14)
[2021-07-25] MEDS ORDERED: SODIUM BICARBONATE 50 MEQ/50 ML SYRINGE IV ONE (04:14)
[2021-07-25 04:29] LABS: Albumin 2.5 G/DL (3.4-5.0); Bilirubin,Total 1.5 MG/DL (0.20-1.00); Osmolality,Calculated 305.7 MOS/KG (273-304); Total Protein 5.6 G/DL (6.4-8.2)
[2021-07-25 04:32] LABS: Potassium 6.3 MMOL/L (3.5-5.1)
[2021-07-25 04:34] LABS: Hematocrit 54.4 VOL% (42.0-52.0); Immature Granulocytes % 3.6 %; Immature Granulocytes Absolute 2.44 #; Lymphocytes # 0.4 10*3/uL (1.4-4.0); Lymphocytes % 0.6 % (21.2-54.2); Mean Corpuscular Volume 98.2 FL (87-102); Mean Platelet Volume 10.2 FL (9.6-12.0); NRBC # 0.03 10*3/uL; Neutrophils % 89.8 % (38.7-73.9); Platelet Count 150 T/CUMM (130-400); Red Blood Count 5.54 MC/CUMM (3.8-5.5); Red Cell Distribution Width 15.9 % (9.3-17.3)
[2021-07-25 04:36] LABS: Hemoglobin 16.3 GM/DL (14.0-18.0); White Blood Count 67.4 T/CUMM (4-12)
[2021-07-25 04:38] LABS: Band Neutrophils 2 % (0-10); Platelet Estimate Adequate; Segmented Neutrophils 93 % (50-85); Total Cells Counted 100
[2021-07-25] MEDS ORDERED: LORazepam 2 MG/1 ML VIAL ONE (06:27)
[2021-07-25] MEDS: MORPHINE 2 MG/1 ML SYRINGE IV PRN (06:32)
[2021-07-25] MEDS ORDERED: LORazepam 2 MG/1 ML VIAL IV ONE (06:32)
[2021-07-25] MEDS ORDERED: MORPHINE 2 MG/1 ML SYRINGE IV ONE (06:32)
[2021-07-25] MEDS ORDERED: MORPHINE 2 MG/1 ML SYRINGE IV PRN (06:52)
== END 2021-07-25 07:00 | DRG 441 ==
LOC: EDUNIT# → EDBD → N.ED 08:01 → N.EDINP 12:31 → SUATTDRO 12:31 → N.CC 12:56 → N.5E 07-18 17:22 → N.ICU 07-24 12:20
PROVIDERS: ADMIT Internal Medicine; ATTEND Internal Medicine